=== PATIENT | male | born 1970 | race African-American/Black ===

== ENCOUNTER 2018-09-13 06:42 | Emergency (ER) | payer MEDICAID ==
[~2018-09-13] VITALS: Ht 172.7 cm; Wt 109.0 kg
[2018-09-13] MEDS ORDERED: MORPHINE SULFATE 4 MG/ML CPJ (NOT FOR IM USE) IV STA (08:18)
[2018-09-13] MEDS ORDERED: SODIUM CHLORIDE 0.9% 1,000 ML IV ONE (08:18)
[2018-09-13] MEDS ORDERED: ONDANSETRON HCL 4MG/2ML INJ IV STA (08:18)
[2018-09-13 08:36] LABS: BASOPHILS % 0.4 % (0.0-2.0); EOSINOPHILS % 0.1 % (0.0-5.0); HEMATOCRIT. 43.7 % (42.0-52.0); HEMOGLOBIN. 14.4 g/dL (14.0-18.0); LYMPHOCYTES % 15.1 % (20.0-50.0); MEAN CORPUSCULAR HEMOGLOBIN 28.6 pg (28.0-32.0); MEAN CORPUSCULAR VOLUME 86.6 fL (80.0-94.0); MEAN PLATELET VOLUME 7.7 fl (7.4-10.4); MONOCYTES % 3.6 % (2.0-8.0); NEUTROPHILS % 80.8 % (40.0-76.0); PLATELET 290 x1000/uL (130-400); RED BLOOD CELL COUNT 5.05 mill/uL (4.7-6.1); RED CELL DISTRIBUTION WIDTH 14.2 % (11.6-14.6)
[2018-09-13 08:40] LABS: CHLORIDE 107 mEq/L (98-107)
[2018-09-13 09:02] LABS: CLARITY URINE CLOUDY (CLEAR); COLOR URINE YELLOW (YELLOW); KETONES URINE TRACE (NEGATIVE); LEUKOCYTE ESTERASE URINE NEGATIVE (NEGATIVE); NITRITE URINE NEGATIVE (NEGATIVE); OCCULT BLOOD URINE NEGATIVE (NEGATIVE); PROTEIN URINE TRACE (NEGATIVE); SPECIFIC GRAVITY URINE 1.024 (1.005-1.030)
[2018-09-13] MEDS ORDERED: LEVETIRACETAM 1000MG/100ML 100 ML IV ONE (09:15)
[2018-09-13] MEDS ORDERED: METOCLOPRAMIDE HCL 10MG/2ML VIAL IV ONE (10:00)
[2018-09-13 11:30] VITALS: BP 140/72
== END 2018-09-13 11:41 | disposition home or self-care (01) ==
LOC: ER 06:42
DX: K80.50 Calculus of bile duct without cholangitis or cholecystitis without obstruction (principal); Z90.49 Acquired absence of other specified parts of digestive tract; Z88.0 Allergy status to penicillin
CPT/HCPCS: 36415; 76705; 80053; 81003; 83690; 85025; 96361; 96374; 96375; 99284; J2270; J2405; J2765; J7030; Z7610

== ENCOUNTER 2018-12-03 00:12 | Inpatient (IN) | payer MEDICAID ==
[~2018-12-03] VITALS: Ht 170.2 cm; Wt 122.5 kg
[2018-12-03] MEDS ORDERED: SODIUM CHLORIDE 0.9% 1,000 ML IV ONE ×2 (01:36→02:45)
[2018-12-03] MEDS ORDERED: KETOROLAC 30MG/ML VIAL IV STA (01:36)
[2018-12-03] MEDS ORDERED: ONDANSETRON 4MG ODT PO ONE (01:45)
[2018-12-03 01:53] LABS: BASOPHILS % 0.4 % (0.0-2.0); EOSINOPHILS % 0.1 % (0.0-5.0); HEMATOCRIT. 48.8 % (42.0-52.0); MEAN CORPUSCULAR HEMOGLOBIN 28.5 pg (28.0-32.0); MEAN CORPUSCULAR VOLUME 86.7 fL (80.0-94.0); MEAN PLATELET VOLUME 7.9 fl (7.4-10.4); MONOCYTES % 4.9 % (2.0-8.0); NEUTROPHILS % 86.6 % (40.0-76.0); PLATELET 300 x1000/uL (130-400); RED BLOOD CELL COUNT 5.63 mill/uL (4.7-6.1); RED CELL DISTRIBUTION WIDTH 15.3 % (11.6-14.6)
[2018-12-03 02:02] LABS: CHLORIDE 98 mEq/L (98-107)
[2018-12-03] MEDS ORDERED: MORPHINE SULFATE 4 MG/ML CPJ (NOT FOR IM USE) IV ONE (02:45)
[2018-12-03 04:28] LABS: CLARITY URINE CLEAR (CLEAR); COLOR URINE DARK YELLOW (YELLOW); KETONES URINE NEGATIVE (NEGATIVE); LEUKOCYTE ESTERASE URINE NEGATIVE (NEGATIVE); NITRITE URINE NEGATIVE (NEGATIVE); OCCULT BLOOD URINE TRACE (NEGATIVE); PROTEIN URINE TRACE (NEGATIVE); SPECIFIC GRAVITY URINE 1.015 (1.005-1.030); UROBILINOGEN URINE 0.2 E.U./dL (0.2-1.0)
[2018-12-03] MEDS ORDERED: PIPERACILLIN/TAZOBACTAM 3.375GM/50ML PREMIX IV SCH (05:54)
[2018-12-03 08:00] VITALS: BP 141/77
[2018-12-03] MEDS ORDERED: ONDANSETRON HCL 4MG/2ML INJ IV PRN (08:00)
[2018-12-03] MEDS: DEXT 5%/0.45% NACL 1000ML 1,000 ML IV SCH ×2 (08:00→18:23)
[2018-12-03] MEDS ORDERED: MORPHINE SULFATE 2 MG/ML CPJ (NOT FOR IM USE) IV PRN (08:00)
[2018-12-03] MEDS ORDERED: CLONIDINE 0.1MG TABLET PO PRN (08:15)
[2018-12-03] MEDS: LEVOFLOXACIN 500MG PREMIX 100 ML IV SCH (09:45)
[2018-12-03] MEDS: METRONIDAZOLE 500 MG PREMIX 100 ML IV SCH ×2 (10:00→18:23)
[2018-12-03 10:05] VITALS: BP 141/77
[2018-12-03 12:00] VITALS: BP 140/66
[2018-12-03 14:17] LABS: *AMPHETAMINES SCREEN URINE NEGATIVE (NEGATIVE); *BARBITURATES SCREEN URINE NEGATIVE (NEGATIVE); *BENZODIAZEPINES SCREEN URINE NEGATIVE (NEGATIVE); *COCAINE SCREEN URINE NEGATIVE (NEGATIVE); CANNABINOID URINE SCREEN NEGATIVE (NEGATIVE); METHADONE URINE SCREEN NEGATIVE (NEGATIVE); OPIATES URINE SCREEN PRESUMTIVE POSITIVE (NEGATIVE); PHENCYCLIDINE URINE SCREEN NEGATIVE (NEGATIVE)
[2018-12-03 15:53] VITALS: BP 141/85
[2018-12-03 16:46] LABS: AMYLASE 248 IU/L (25-115)
[2018-12-03 17:12] LABS: HEPATITIS B SURFACE ANTIGEN NEGATIVE
[2018-12-03 17:42] LABS: HEPATITIS A AB IGM NEGATIVE (NEGATIVE)
[2018-12-03] MEDS ORDERED: CHLORPROMAZINE HCL 25 MG TABLET PO PRN (18:00)
[2018-12-03 20:00] VITALS: BP 142/75
[2018-12-03] MEDS: ACETAMINOPHEN 325MG TABLET PO PRN (21:26)
[2018-12-04] VITALS: BP 145/71
[2018-12-04 04:00] VITALS: BP 123/56
[2018-12-04] MEDS: METRONIDAZOLE 500 MG PREMIX 100 ML IV SCH ×3 (04:52→17:37)
[2018-12-04] MEDS: ACETAMINOPHEN 325MG TABLET PO PRN ×3 (05:23→23:51)
[2018-12-04 07:21] LABS: BASOPHILS % 0.2 % (0.0-2.0); EOSINOPHILS % 0.2 % (0.0-5.0); HEMATOCRIT. 39.8 % (42.0-52.0); HEMOGLOBIN. 13.2 g/dL (14.0-18.0); LYMPHOCYTES % 11.7 % (20.0-50.0); MEAN CORPUSCULAR HEMOGLOBIN 28.6 pg (28.0-32.0); MEAN CORPUSCULAR VOLUME 86.4 fL (80.0-94.0); MEAN PLATELET VOLUME 8.1 fl (7.4-10.4); MONOCYTES % 7.2 % (2.0-8.0); NEUTROPHILS % 80.7 % (40.0-76.0); PLATELET 251 x1000/uL (130-400); RED CELL DISTRIBUTION WIDTH 15.4 % (11.6-14.6)
[2018-12-04 07:35] LABS: CHLORIDE 103 mEq/L (98-107)
[2018-12-04 08:00] VITALS: BP 140/85
[2018-12-04] MEDS: LEVOFLOXACIN 500MG PREMIX 100 ML IV SCH (08:34)
[2018-12-04] MEDS ORDERED: POTASSIUM CHLORIDE 20MEQ TABLET SR PO NR (11:30)
[2018-12-04 12:00] VITALS: BP 138/66
[2018-12-04] MEDS: DEXT 5%/0.45% NACL KCL 20MEQ/L 1,000 ML IV SCH ×2 (12:00→21:18)
[2018-12-04 16:00] VITALS: BP 147/78
[2018-12-04 20:00] VITALS: BP 142/77
[2018-12-05] VITALS: BP 146/78
[2018-12-05] MEDS: METRONIDAZOLE 500 MG PREMIX 100 ML IV SCH ×3 (02:08→19:33)
[2018-12-05 04:00] VITALS: BP 149/81
[2018-12-05 08:00] VITALS: BP 134/75
[2018-12-05] MEDS: DEXT 5%/0.45% NACL KCL 20MEQ/L 1,000 ML IV SCH (08:00)
[2018-12-05 08:06] LABS: EOSINOPHILS % 0.1 % (0.0-5.0); HEMATOCRIT. 39.3 % (42.0-52.0); HEMOGLOBIN. 13.1 g/dL (14.0-18.0); LYMPHOCYTES % 10.9 % (20.0-50.0); MEAN CORPUSCULAR HEMOGLOBIN 28.6 pg (28.0-32.0); MEAN CORPUSCULAR VOLUME 85.8 fL (80.0-94.0); MEAN PLATELET VOLUME 8.2 fl (7.4-10.4); PLATELET 279 x1000/uL (130-400); RED BLOOD CELL COUNT 4.58 mill/uL (4.7-6.1)
[2018-12-05 08:10] LABS: CHLORIDE 105 mEq/L (98-107)
[2018-12-05 08:20] LABS: AMYLASE 96 IU/L (25-115)
[2018-12-05] MEDS: LEVOFLOXACIN 500MG PREMIX 100 ML IV SCH (09:00)
[2018-12-05] MEDS ORDERED: LIDOCAINE HCL 1% 20ML VIAL (Pyxis) INJ ONE (09:37)
[2018-12-05] MEDS ORDERED: INDOCYANINE GREEN 25 MG VIAL IV ONE (09:37)
[2018-12-05] MEDS ORDERED: NORMAL SALINE 0.9% 10 ML SYR ONE (09:38)
[2018-12-05] MEDS ORDERED: BUPIVACAINE HCL/PF 0.5% (5MG/ML) 10ML ONE ×2 (09:38→09:41)
[2018-12-05] MEDS ORDERED: BACITRACIN 50,000 UNITS/VIAL ONE (09:39)
[2018-12-05] MEDS ORDERED: SKIN ADHESIVE 0.7 GM EA TOP ONE (09:55)
[2018-12-05] MEDS ORDERED: MIDAZOLAM HCL 2 MG/2 ML VIAL ONE (10:42)
[2018-12-05] MEDS ORDERED: FENTANYL CITRATE/PF 50MCG/ML 2ML VIAL ONE (10:42)
[2018-12-05] MEDS ORDERED: PROPOFOL 200MG/20ML VIAL IV ONE (10:53)
[2018-12-05] MEDS ORDERED: ROCURONIUM BROMIDE 10MG/ML VIAL 5ML IV ONE (10:54)
[2018-12-05] MEDS ORDERED: SUCCINYLCHOLINE CHLORIDE 200MG/10ML IV ONE ×2 (10:54→13:26)
[2018-12-05] MEDS ORDERED: LIDOCAINE HCL/PF 1% 10 MG/ML 5ML VIAL ONE (10:54)
[2018-12-05] MEDS ORDERED: LEVOFLOXACIN 500MG PREMIX 100 ML IV ONE (10:57)
[2018-12-05] MEDS ORDERED: EPHEDRINE SULFATE 50MG/ML VIAL ONE (11:05)
[2018-12-05] MEDS ORDERED: SODIUM CHLORIDE 0.9% 10ML VIAL ONE (11:05)
[2018-12-05] MEDS ORDERED: DEXAMETHASONE 4MG/ML 1ML VIAL ONE (11:57)
[2018-12-05] MEDS ORDERED: ONDANSETRON HCL 4MG/2ML INJ ONE (11:57)
[2018-12-05] MEDS ORDERED: GLYCOPYRROLATE 0.2 MG/ML 2ML VIAL ONE (14:11)
[2018-12-05] MEDS ORDERED: ESMOLOL HCL 10MG/ML 10ML VIAL IV ONE (14:13)
[2018-12-05] MEDS ORDERED: HYDROMORPHONE HCL/PF 2MG/ML CPJ IV PRN ×2 (14:15→15:00)
[2018-12-05] MEDS ORDERED: ONDANSETRON HCL 4MG/2ML INJ IV PRN (15:00)
[2018-12-05 17:07] VITALS: BP 122/78
[2018-12-05 20:00] VITALS: BP 109/58
[2018-12-06] VITALS (7 sets, daily range): BP systolic 78–147; BP diastolic 60–137
[2018-12-06] MEDS: METRONIDAZOLE 500 MG PREMIX 100 ML IV SCH ×3 (03:34→20:56)
[2018-12-06 06:19] LABS: BASOPHILS % 0.1 % (0.0-2.0); HEMATOCRIT. 37.2 % (42.0-52.0); HEMOGLOBIN. 12.3 g/dL (14.0-18.0); LYMPHOCYTES % 13.4 % (20.0-50.0); MEAN CORPUSCULAR HEMOGLOBIN 28.5 pg (28.0-32.0); MEAN PLATELET VOLUME 7.7 fl (7.4-10.4); MONOCYTES % 8.2 % (2.0-8.0); NEUTROPHILS % 78.3 % (40.0-76.0); PLATELET 329 x1000/uL (130-400); RED BLOOD CELL COUNT 4.32 mill/uL (4.7-6.1); RED CELL DISTRIBUTION WIDTH 15.1 % (11.6-14.6)
[2018-12-06 06:29] LABS: CHLORIDE 105 mEq/L (98-107)
[2018-12-06] MEDS: DEXT 5%/0.45% NACL KCL 20MEQ/L 1,000 ML IV SCH (06:30)
[2018-12-06] MEDS: ACETAMINOPHEN 325MG TABLET PO PRN ×2 (06:54→20:56)
[2018-12-06] MEDS: LEVOFLOXACIN 500MG PREMIX 100 ML IV SCH (08:44)
[2018-12-06] MEDS ORDERED: MAGNESIUM HYDROXIDE 400MG/5ML 30ML UDC PO PRN (10:15)
[2018-12-06] MEDS ORDERED: ACET-2178 PO (11:53)
[2018-12-07] VITALS: BP 121/60
[2018-12-07 04:00] VITALS: BP 122/67
[2018-12-07] MEDS: METRONIDAZOLE 500 MG PREMIX 100 ML IV SCH ×3 (06:11→17:15)
[2018-12-07 08:00] VITALS: BP 147/87
[2018-12-07] MEDS: ACETAMINOPHEN 325MG TABLET PO PRN ×2 (08:24→16:57)
[2018-12-07] MEDS: LEVOFLOXACIN 500MG PREMIX 100 ML IV SCH (08:24)
[2018-12-07] MEDS: DEXT 5%/0.45% NACL KCL 20MEQ/L 1,000 ML IV SCH (09:52)
[2018-12-07 11:20] LABS: BASOPHILS % 0.3 % (0.0-2.0); EOSINOPHILS % 0.2 % (0.0-5.0); HEMATOCRIT. 39.8 % (42.0-52.0); LYMPHOCYTES % 13.4 % (20.0-50.0); MEAN CORPUSCULAR HEMOGLOBIN 28.2 pg (28.0-32.0); MEAN CORPUSCULAR VOLUME 86.4 fL (80.0-94.0); MEAN PLATELET VOLUME 7.8 fl (7.4-10.4); NEUTROPHILS % 76.1 % (40.0-76.0); PLATELET 366 x1000/uL (130-400); RED CELL DISTRIBUTION WIDTH 15.4 % (11.6-14.6)
[2018-12-07 12:00] VITALS: BP 140/86
[2018-12-07 16:00] VITALS: BP 143/73
[2018-12-07] MEDS ORDERED: PIPERACILLIN/TAZOBACTAM 3.375 G in DEXT 5% WATER 100 ML IV SCH (19:45)
[2018-12-07 20:00] VITALS: BP 155/80
[2018-12-08] VITALS: BP 115/65
[2018-12-08] MEDS: ACETAMINOPHEN 325MG TABLET PO PRN ×3 (00:10→23:59)
[2018-12-08 04:00] VITALS: BP 144/73
[2018-12-08] MEDS: DEXT 5%/0.45% NACL KCL 20MEQ/L 1,000 ML IV SCH (05:23)
[2018-12-08 06:19] LABS: BASOPHILS % 0.2 % (0.0-2.0); EOSINOPHILS % 0.5 % (0.0-5.0); HEMOGLOBIN. 12.7 g/dL (14.0-18.0); LYMPHOCYTES % 17.3 % (20.0-50.0); MEAN CORPUSCULAR HEMOGLOBIN 28.2 pg (28.0-32.0); MEAN CORPUSCULAR VOLUME 86.9 fL (80.0-94.0); MEAN PLATELET VOLUME 7.5 fl (7.4-10.4); MONOCYTES % 11.2 % (2.0-8.0); NEUTROPHILS % 70.8 % (40.0-76.0); PLATELET 349 x1000/uL (130-400); RED BLOOD CELL COUNT 4.49 mill/uL (4.7-6.1); RED CELL DISTRIBUTION WIDTH 15.2 % (11.6-14.6)
[2018-12-08 06:27] LABS: CHLORIDE 104 mEq/L (98-107)
[2018-12-08 08:00] VITALS: BP 130/77
[2018-12-08] MEDS ORDERED: CEFTRIAXONE 1 G PREMIX 50 ML IV SCH (11:00)
[2018-12-08] MEDS: CEFEPIME 1,000 MG in DEXTROSE 5% WATER 50 ML IV SCH (13:04)
[2018-12-08 13:30] LABS: CLARITY URINE CLEAR (CLEAR); COLOR URINE YELLOW (YELLOW); KETONES URINE NEGATIVE (NEGATIVE); LEUKOCYTE ESTERASE URINE NEGATIVE (NEGATIVE); NITRITE URINE NEGATIVE (NEGATIVE); OCCULT BLOOD URINE NEGATIVE (NEGATIVE); PH URINE 7.5 (4.5-8.0); PROTEIN URINE NEGATIVE (NEGATIVE); SPECIFIC GRAVITY URINE 1.011 (1.005-1.030)
[2018-12-08] MEDS: METRONIDAZOLE 500 MG PREMIX 100 ML IV SCH ×2 (13:53→21:57)
[2018-12-08 20:00] VITALS: BP 144/65
[2018-12-09] VITALS: BP 132/63
[2018-12-09] MEDS: CEFEPIME 1,000 MG in DEXTROSE 5% WATER 50 ML IV SCH ×2 (00:44→11:16)
[2018-12-09 04:00] VITALS: BP 126/70
[2018-12-09] MEDS: METRONIDAZOLE 500 MG PREMIX 100 ML IV SCH ×2 (06:08→12:13)
[2018-12-09 07:25] LABS: BASOPHILS % 0.4 % (0.0-2.0); EOSINOPHILS % 0.8 % (0.0-5.0); HEMATOCRIT. 38.2 % (42.0-52.0); HEMOGLOBIN. 12.4 g/dL (14.0-18.0); LYMPHOCYTES % 19.2 % (20.0-50.0); MEAN CORPUSCULAR HEMOGLOBIN 28.1 pg (28.0-32.0); MEAN CORPUSCULAR VOLUME 86.7 fL (80.0-94.0); MEAN PLATELET VOLUME 7.4 fl (7.4-10.4); MONOCYTES % 8.7 % (2.0-8.0); NEUTROPHILS % 70.9 % (40.0-76.0); PLATELET 396 x1000/uL (130-400); RED BLOOD CELL COUNT 4.41 mill/uL (4.7-6.1); RED CELL DISTRIBUTION WIDTH 15.2 % (11.6-14.6)
[2018-12-09 07:37] LABS: CHLORIDE 106 mEq/L (98-107)
[2018-12-09 07:46] LABS: AMYLASE 91 IU/L (25-115)
[2018-12-09 08:00] VITALS: BP 135/75
[2018-12-09] MEDS: DEXT 5%/0.45% NACL KCL 20MEQ/L 1,000 ML IV SCH ×2 (10:12→22:10)
[2018-12-09 12:00] VITALS: BP 136/75
[2018-12-09 16:00] VITALS: BP 137/76
[2018-12-09 20:00] VITALS: BP 130/77
[2018-12-10] VITALS: BP 151/80
[2018-12-10 04:00] VITALS: BP 121/60
[2018-12-10 07:37] LABS: BASOPHILS % 0.3 % (0.0-2.0); EOSINOPHILS % 1.3 % (0.0-5.0); HEMATOCRIT. 36.8 % (42.0-52.0); LYMPHOCYTES % 17.7 % (20.0-50.0); MEAN CORPUSCULAR HEMOGLOBIN 28.2 pg (28.0-32.0); MEAN CORPUSCULAR VOLUME 86.3 fL (80.0-94.0); MEAN PLATELET VOLUME 7.5 fl (7.4-10.4); MONOCYTES % 9.1 % (2.0-8.0); NEUTROPHILS % 71.6 % (40.0-76.0); PLATELET 421 x1000/uL (130-400); RED BLOOD CELL COUNT 4.27 mill/uL (4.7-6.1)
[2018-12-10 07:52] LABS: CHLORIDE 105 mEq/L (98-107)
[2018-12-10 07:57] LABS: AMYLASE 106 IU/L (25-115)
[2018-12-10 08:00] VITALS: BP 145/83
[2018-12-10] MEDS: ACETAMINOPHEN 325MG TABLET PO PRN ×2 (08:10→21:40)
[2018-12-10] MEDS: DEXT 5%/0.45% NACL KCL 20MEQ/L 1,000 ML IV SCH ×2 (08:10→16:54)
[2018-12-10 12:00] VITALS: BP 128/70
[2018-12-10 16:00] VITALS: BP 132/72
[2018-12-11] VITALS: BP 139/75
[2018-12-11 04:00] VITALS: BP 149/78
[2018-12-11 08:00] VITALS: BP 123/66
[2018-12-11 12:00] VITALS: BP 131/75
[2018-12-11] MEDS: DEXT 5%/0.45% NACL KCL 20MEQ/L 1,000 ML IV SCH (12:11)
[2018-12-11] MEDS ORDERED: LIDOCAINE HCL 1% 20ML VIAL (Pyxis) INJ ONE (12:14)
[2018-12-11] MEDS ORDERED: SODIUM BICARBONATE 4% (2.4MEQ) 5ML VIAL IV ONE (12:14)
[2018-12-11 16:00] VITALS: BP 128/72
[2018-12-11 20:00] VITALS: BP 135/65
[2018-12-12] VITALS: BP 128/71
[2018-12-12 04:00] VITALS: BP 122/69
[2018-12-12 06:07] LABS: CHLORIDE 103 mEq/L (98-107)
[2018-12-12 06:20] LABS: BASOPHILS % 0.3 % (0.0-2.0); EOSINOPHILS % 1.7 % (0.0-5.0); HEMATOCRIT. 38.7 % (42.0-52.0); HEMOGLOBIN. 12.8 g/dL (14.0-18.0); LYMPHOCYTES % 23.1 % (20.0-50.0); MEAN CORPUSCULAR HEMOGLOBIN 28.4 pg (28.0-32.0); MEAN CORPUSCULAR VOLUME 85.6 fL (80.0-94.0); MEAN PLATELET VOLUME 7.5 fl (7.4-10.4); NEUTROPHILS % 67.9 % (40.0-76.0); PLATELET 508 x1000/uL (130-400); RED BLOOD CELL COUNT 4.52 mill/uL (4.7-6.1); RED CELL DISTRIBUTION WIDTH 14.9 % (11.6-14.6)
[2018-12-12 08:00] VITALS: BP 133/67
[2018-12-12] MEDS: DEXT 5%/0.45% NACL KCL 20MEQ/L 1,000 ML IV SCH (10:30)
[2018-12-12 12:00] VITALS: BP 134/80
[2018-12-12 16:00] VITALS: BP 127/82
[2018-12-12 20:00] VITALS: BP 118/78
[2018-12-13] VITALS: BP 116/72
[2018-12-13 04:00] VITALS: BP 113/68
[2018-12-13] MEDS: DEXT 5%/0.45% NACL KCL 20MEQ/L 1,000 ML IV SCH ×2 (05:08→15:33)
[2018-12-13 06:55] LABS: BASOPHILS % 0.3 % (0.0-2.0); CHLORIDE 108 mEq/L (98-107); EOSINOPHILS % 2.2 % (0.0-5.0); HEMOGLOBIN. 11.6 g/dL (14.0-18.0); LYMPHOCYTES % 25.4 % (20.0-50.0); MEAN CORPUSCULAR HEMOGLOBIN 28.5 pg (28.0-32.0); MEAN CORPUSCULAR VOLUME 85.7 fL (80.0-94.0); MEAN PLATELET VOLUME 7.5 fl (7.4-10.4); MONOCYTES % 7.1 % (2.0-8.0); PLATELET 449 x1000/uL (130-400); RED BLOOD CELL COUNT 4.09 mill/uL (4.7-6.1); RED CELL DISTRIBUTION WIDTH 14.5 % (11.6-14.6)
[2018-12-13 08:00] VITALS: BP 112/57
[2018-12-13 12:00] VITALS: BP 125/71
[2018-12-13 15:55] VITALS: BP 125/71
[2018-12-13 16:00] VITALS: BP 135/71
== END 2018-12-13 19:21 | disposition home or self-care (01) | DRG 710 ==
LOC: ER 00:12 → 6EST 02:42 → ENRESERV 07:12
PROVIDERS: ADMIT Internal Medicine; ATTEND Internal Medicine
PROC: 0FT44ZZ Resection of Gallbladder, Percutaneous Endoscopic Approach (ICD-10-PCS; 2018-12-05)
PROC: 8E0W4CZ Robotic Assisted Procedure of Trunk Region, Percutaneous Endoscopic Approach (ICD-10-PCS; 2018-12-05)
PROC: 02HV33Z Insertion of Infusion Device into Superior Vena Cava, Percutaneous Approach (ICD-10-PCS; principal; 2018-12-11)
PROC: B548ZZA Ultrasonography of Superior Vena Cava, Guidance (ICD-10-PCS; 2018-12-11)
PROC: B5181ZA Fluoroscopy of Superior Vena Cava using Low Osmolar Contrast, Guidance (ICD-10-PCS; 2018-12-11)
DX: A41.9 Sepsis, unspecified organism (principal); K85.10 Biliary acute pancreatitis without necrosis or infection; K76.0 Fatty (change of) liver, not elsewhere classified; E87.1 Hypo-osmolality and hyponatremia; K80.64 Calculus of gallbladder and bile duct with chronic cholecystitis without obstruction; Z68.41 Body mass index [BMI] 40.0-44.9, adult; E66.9 Obesity, unspecified; I10 Essential (primary) hypertension; E87.6 Hypokalemia; E66.8 Other obesity; Z88.0 Allergy status to penicillin; Z86.73 Personal history of transient ischemic attack (TIA), and cerebral infarction without residual deficits; Z79.899 Other long term (current) drug therapy; Z71.89 Other specified counseling
CPT/HCPCS: 36415; 36573; 71045; 74176; 74181; 76705; 80048; 80076; 80305; 81003; 82150; 82248; 84145; 84478; 86705; 86709; 86803; 86850; 86900; 87340; 88304; 93005; 93970; 96374; 99285; C1725; C1769; J0330; J0692; J1100; J1170; J1885; J1956; J2250; J2270; J2405; J2543; J2704; J3010; J3490; J7030; J7060; Q0161; Q0162; Q9957

== ENCOUNTER 2021-09-28 17:02 | Emergency (ER) | payer MEDICAID ==
[~2021-09-28] VITALS: Ht 172.7 cm; Wt 114.0 kg
[~2021-09-28 17:02] MED LIST: TOPUD PO
[2021-09-28] MEDS ORDERED: TOPUD PO (18:10)
[2021-09-28] MEDS ORDERED: IBUP-2028 MT (18:10)
[2021-09-28] MEDS ORDERED: IBUPROFEN 400MG TABLET PO ONE (18:15)
[2021-09-28] MEDS ORDERED: ACETAMINOPHEN 325MG TABLET PO ONE (18:15)
[2021-09-28 18:31] VITALS: BP 150/91
== END 2021-09-28 18:45 | disposition home or self-care (01) ==
LOC: ER 17:02
DX: H57.11 Ocular pain, right eye (principal); H57.12 Ocular pain, left eye; Z90.49 Acquired absence of other specified parts of digestive tract; Z88.0 Allergy status to penicillin
CPT/HCPCS: 99283

== ENCOUNTER 2023-07-14 12:48 | Emergency (ER) | payer MEDICAID ==
[~2023-07-14] VITALS: Ht 172.7 cm; Wt 131.0 kg
[~2023-07-14 12:48] MED LIST changes: +IBUP-2028 MT
[2023-07-14 13:32] VITALS: O2SAT 100
[2023-07-14 13:39] LABS: BASOPHILS % 0.5 % (0.0-2.0); EOSINOPHILS % 0.9 % (0.0-5.0); HEMATOCRIT. 44.2 % (42.0-52.0); HEMOGLOBIN. 14.7 g/dL (14.0-18.0); LYMPHOCYTES % 32.1 % (20.0-50.0); MEAN CORPUSCULAR HEMOGLOBIN 29.2 pg (28.0-32.0); MEAN CORPUSCULAR HGB CONC 33.3 g/dL (31.0-37.0); MEAN CORPUSCULAR VOLUME 87.7 fL (80.0-94.0); MEAN PLATELET VOLUME 8.2 fl (7.4-10.4); MONOCYTES % 5.2 % (2.0-8.0); NEUTROPHILS % 61.3 % (40.0-76.0); PLATELET 307 x1000/uL (130-400); RED BLOOD CELL COUNT 5.04 mill/uL (4.7-6.1); RED CELL DISTRIBUTION WIDTH 13.9 % (11.6-14.6); WHITE BLOOD COUNT 8.9 x1000/uL (4.5-11.0)
[2023-07-14 14:05] LABS: ALANINE AMINOTRANSFERASE 17 IU/L (10-49); ALBUMIN 5.2 g/dL (3.2-4.8); ASPARTATE AMINOTRANSFERASE 17 IU/L (<34); BILIRUBIN TOTAL 0.5 mg/dL (0.1-1.0); CALCIUM 9.4 mg/dL (8.7-10.4); CARBON DIOXIDE 25 mEq/L (21-32); CHLORIDE 105 mEq/L (98-107); CREATININE 1.2 mg/dL (0.6-1.3); GLUCOSE 136 mg/dL (70-105); POTASSIUM 4.1 mEq/L (3.5-5.1); PROTEIN TOTAL 8.8 g/dL (6.0-8.3); SODIUM 138 mEq/L (136-145); UREA NITROGEN BLOOD 12 mg/dL (9-23)
[2023-07-14 14:06] LABS: TROPONIN I HIGH SENSITIVITY < 4 ng/L (3.0-53)
[2023-07-14 17:15] VITALS: BP 133/81; PULSE 94; RESP 16; TEMP 98.3
[2023-07-14 17:26] LABS: CLARITY URINE CLEAR (CLEAR); COLOR URINE YELLOW (YELLOW); GLUCOSE URINE NEGATIVE (NEGATIVE); KETONES URINE NEGATIVE (NEGATIVE); LEUKOCYTE ESTERASE URINE NEGATIVE (NEGATIVE); NITRITE URINE NEGATIVE (NEGATIVE); OCCULT BLOOD URINE NEGATIVE (NEGATIVE); PROTEIN URINE NEGATIVE (NEGATIVE); SPECIFIC GRAVITY URINE 1.023 (1.005-1.030); UROBILINOGEN URINE 0.2 E.U./dL (0.2-1.0)
== END 2023-07-14 17:06 | disposition home or self-care (01) ==
LOC: ER 12:48
DX: R10.84 Generalized abdominal pain (principal); Z88.0 Allergy status to penicillin; Z90.49 Acquired absence of other specified parts of digestive tract
CPT/HCPCS: 36415; 71045; 74176; 80053; 81003; 84484; 85025; 93005; 99285

== ENCOUNTER 2025-04-01 14:59 | Emergency (ER) | payer MEDICAID ==
[~2025-04-01] VITALS: Ht 170.2 cm; Wt 114.0 kg
[2025-04-01 15:32] VITALS: O2SAT 98
[2025-04-01 20:55] LABS: INFLUENZA TYPE A Presumptive Negative (Pres. Neg.); INFLUENZA TYPE B Presumptive Negative (Pres. Neg.)
[2025-04-01 20:56] LABS: RESPIRATORY SYNCYTIAL VIRUS Not Detected (Not Detectd)
[2025-04-01] MEDS ORDERED: BENZ100C86 MT (21:02)
[2025-04-01] MEDS ORDERED: IBUP-2028 MT (21:02)
[2025-04-01 21:18] VITALS: BP 131/78; PULSE 79; RESP 14; TEMP 36.7; O2SAT 98
== END 2025-04-01 21:21 | disposition home or self-care (01) ==
LOC: ER 14:59
DX: R05.9 Cough, unspecified (principal); Z88.0 Allergy status to penicillin; Z90.49 Acquired absence of other specified parts of digestive tract
CPT/HCPCS: 71045; 87420; 87426; 87804; 99284